=== PATIENT | male | born 1950 | race Caucasian/White ===

== ENCOUNTER 2018-07-02 21:51 | Emergency (ER) | payer MEDICARE ==
[~2018-07-02] VITALS: Ht 167.6 cm; Wt 55.3 kg
[~2018-07-02 21:51] MED LIST: AMLO10TA6 PO; ASPI-612 PO; ASPI325T8 PO; BUDE180A IH; CLOP75TA PO; FURO-68 PO; PROAIR HFA8.5 GM INH; TAMS0.4C97 PO; TICA90TA PO
[2018-07-02] MEDS ORDERED: IV NORMAL SALINE 1000ML BAG 1,000 ML IV ONE (23:00)
[2018-07-02 23:22] LABS: BASO # 0.1 x10^3/uL (0.0-0.2); BASO % 1 % (0-3); EOS # 0.4 x10^3/uL (0.0-0.7); EOS % 5 % (0-3); HEMATOCRIT 34.3 % (39.0-53.0); HEMOGLOBIN 12.2 g/dL (13.0-17.5); LYMPH # 1.5 x10^3/uL (1.0-4.8); LYMPH % 18 % (24-48); MEAN CORPUSCULAR HEMOGLOBIN 33 pg (25-35); MEAN CORPUSCULAR HGB CONC 36 g/dL (31-37); MEAN CORPUSCULAR VOLUME 94 fL (79-100); MONO # 0.5 x10^3/uL (0.0-1.1); MONO % 6 % (0-9); NEUT # 5.6 x10^3uL (1.8-7.7); NEUT % 70 % (31-73); PLATELET COUNT 327 x10^3/uL (140-400); RED BLOOD COUNT 3.66 x10^6/uL (4.30-5.70); RED CELL DISTRIBUTION WIDTH 13.8 % (11.5-14.5)
[2018-07-02 23:24] LABS: BILIRUBIN,URINE SMALL (NEG); CLARITY,URINE CLOUDY; COLOR,URINE RED; NITRITE,URINE NEGATIVE (NEG); PH,URINE 5.5; PROTEIN,URINE 30 mg/dL (NEG-TRACE)
[2018-07-02 23:29] LABS: RBC,URINE TNTC /HPF (0-2)
[2018-07-02 23:31] LABS: BACTERIA,URINE 0 /HPF (0-FEW); SQUAMOUS EPITHELIAL CELL,UR OCC /LPF; WBC,URINE 20-40 /HPF (0-4)
[2018-07-02 23:32] LABS: HYALINE CASTS, URINE FEW /HPF
[2018-07-03] MEDS ORDERED: LEVO500T59 PO (00:18)
[2018-07-03 00:45] VITALS: BP 142/70
--- NOTE | 2018-07-03 04:40 | PHYS DOC ---
Past Medical History Past Medical History: [place] Additional Past Surgical Histo: EAR, HERNIA REPAIR, STENT PLACEMENT Additional Information: 0.5 PPD Alcohol Use: None Drug Use: None Adult General Chief Complaint Chief Complaint: BLOOD IN URINE HPI HPI Patient is a 68 year old male who presents with hematuria. The patient states he had bright red blood from his penis earlier today. He was in the ER earlier this week for the same complaint. The patient was in the hospital last week when he had a Ramírez catheter placed. There was some difficulty placing the Ramírez and he describes a traumatic insertion. He had some hematuria prior to discharge that cleared. Following discharge, he had another episode of hematuria when he came to the emergency department. His hemoglobin was stable. He was found to have hematuria but no other acute findings. He was admitted during that ED visit and was again evaluated by urology. The plan of care included watchful waiting. The patient does have scheduled follow-up with urology. His urine again cleared and he was discharged from the hospital without intervention. Today, he presents with another episode. He describes bright red blood from his urethra soaking a couple of wash rags. He does not have pain. No fever. He has no difficulty with urination. Review of Systems Review of Systems Constitutional: Denies fever or chills HENT: Denies Respiratory: Denies Cardiovascular: No additional information not addressed in HPI GI: Denies abdominal pain : Denies dysuria Musculoskeletal: Denies back pain Integument: Denies rash or skin lesions Neurologic: Denies All other systems were reviewed and found to be within normal limits, except as documented in this note. Current Medications Current Medications Current Medications Medications (Trade) Dose Ordered Sig/Chanel Start Time Stop Time Status Last Admin Dose Admin Levofloxacin (Levaquin) 500 mg 1X ONCE 07/03/18 00:30 07/03/18 00:31 DC 07/03/18 00:44 500 MG Sodium Chloride 1,000 ml @ 1,000 mls/hr 1X ONCE 07/02/18 23:00 07/02/18 23:59 DC Allergies Allergies Allergies Coded Allergies Type Severity Reaction Last Updated Verified coconut Allergy Intermediate 06/26/18 Yes Physical Exam Physical Exam Constitutional: Well developed, well nourished, no acute distress HENT: Normocephalic, atraumatic, bilateral external ears normal, oropharynx moist Eyes: PERRLA, EOMI, conjunctiva normal Neck: Normal range of motion, no tenderness Cardiovascular:Heart rate regular rhythm, no murmur Lungs & Thorax: Bilateral breath sounds clear to auscultation Abdomen: Bowel sounds normal, soft, no tenderness Skin: Warm, dry, no erythema, no rash Extremities: No tenderness, no edema Neurologic: Alert and oriented X 3 Psychologic: Affect normal Current Patient Data Vital Signs Vital Signs Date Time Temp Pulse Resp B/P (MAP) Pulse Ox O2 Delivery O2 Flow Rate FiO2 07/03/18 00:45 61 16 142/70 (94) 97 07/02/18 22:45 Room Air 07/02/18 22:09 98.0 98.0 Lab Values Laboratory Tests Test 07/02/18 22:14 07/02/18 22:25 Urine Collection Type Unknown Urine Color Red Urine Clarity Cloudy Urine pH 5.5 Urine Specific [place] 1.015 Urine Protein 30 mg/dL (NEG-TRACE) Urine Glucose (UA) Negative mg/dL (NEG) Urine Ketones (Stick) Trace mg/dL (NEG) Urine Blood Large (NEG) Urine Nitrite Negative (NEG) Urine Bilirubin Small (NEG) Urine Urobilinogen Dipstick 1.0 mg/dL (0.2 mg/dL) Urine Leukocyte Esterase Moderate (NEG) Urine RBC Tntc /HPF (0-2) Urine WBC 20-40 /HPF (0-4) Urine Squamous Epithelial Cells Occ /LPF Urine Bacteria 0 /HPF (0-FEW) Urine Hyaline Casts Few /HPF Urine Mucus Mod /LPF White Blood Count 8.0 x10^3/uL (4.0-11.0) Red Blood Count 3.66 x10^6/uL (4.30-5.70) L Hemoglobin 12.2 g/dL (13.0-17.5) L Hematocrit 34.3 % (39.0-53.0) L Mean Corpuscular Volume 94 fL (79-100) Mean Corpuscular Hemoglobin 33 pg (25-35) Mean Corpuscular Hemoglobin Concent 36 g/dL (31-37) Red Cell Distribution Width 13.8 % (11.5-14.5) Platelet Count 327 x10^3/uL (140-400) Neutrophils (%) (Auto) 70 % (31-73) Lymphocytes (%) (Auto) 18 % (24-48) L Monocytes (%) (Auto) 6 % (0-9) Eosinophils (%) (Auto) 5 % (0-3) H Basophils (%) (Auto) 1 % (0-3) Neutrophils # (Auto) 5.6 x10^3uL (1.8-7.7) Lymphocytes # (Auto) 1.5 x10^3/uL (1.0-4.8) Monocytes # (Auto) 0.5 x10^3/uL (0.0-1.1) Eosinophils # (Auto) 0.4 x10^3/uL (0.0-0.7) Basophils # (Auto) 0.1 x10^3/uL (0.0-0.2) Laboratory Tests 07/02/18 22:25 EKG EKG [] Radiology/Procedures Radiology/Procedures [] Course & Med Decision Making Course & Med Decision Making Pertinent Labs and Imaging studies reviewed. (See chart for details) Patient was again evaluated for hematuria. During the ED course, the patient was encouraged to drink copious amounts of water. His urine eventually did become clear before he left the ER. Urinalysis again revealed hematuria but this time also concern for some infection. The patient is discharged to home with a prescription for Levaquin. He was advised that he did not need to return to the emergency department unless his bleeding persisted in the near future. His hemoglobin today was stable. He does have scheduled follow-up with urology. Dragon Disclaimer Dragon Disclaimer This electronic medical record was generated, in whole or in part, using a voice recognition dictation system. Departure Departure Impression: Primary Impression: Urinary tract infection Additional Impression: Gross hematuria Disposition: HOME, SELF-CARE Condition: GOOD Patient Instructions: Urinary Tract Infection, [id number], Hematuria, Adult Scripts Levofloxacin (LEVAQUIN) 500 Mg Tablet 500 MG PO DAILY for 5 Days, #5 TAB Prov: JENN GREGORY DO 07/03/18 Problem Qualifiers JENN GREGORY DO Jul 03, 2018 04:40
== END 2018-07-03 00:51 | disposition home or self-care (01) ==
LOC: ER 21:51
DX: N39.0 Urinary tract infection, site not specified (principal); R31.0 Gross hematuria; I25.2 Old myocardial infarction; Z91.018 Allergy to other foods
CPT/HCPCS: 36415; 81001; 85025; 99284

== ENCOUNTER → 2021-01-19 | Outpatient (CLI) | payer MEDICARE ==
[~2021-01-19] MED LIST changes: +ALBU2.5V8 INH; +AMLO-187 PO; -AMLO10TA6 PO; -ASPI-612 PO; +ASPI-886 PO; +LEVO500T59 PO; -PROAIR HFA8.5 GM INH
--- NOTE | 2021-01-19 12:32 | RAD ---
MR#: [id number] Date of Study: 01/19/2021 Ordering Physician: ASHOK COLLINS, Referring Physician: ASHOK COLLINS, Tech: Cyrus Dobbins MBA, RDMS, RVT, RDCS, RTR APPROVED REPORT Patient Location: OUT-PATIENT Indications rt groin swelling/r/o psuedoaneurysm Findings Grayscale and color images of the right groin were obtained. Grossly there is mild diffuse atheroscl erosis in the proximal right common femoral artery. The common femoral vein does not have any eviden ce of thrombus. No obvious arteriovenous communication or pseudoaneurysm is identified of the right groin vessels. Incidental note is made of right groin lymph node largest measuring 4.1 cm. Clinical correlation recommended. Critical Notification Critical Value: No <Conclusion> 1. No clear evidence of right groin pseudoaneurysm or arteriovenous fistula formation 2. Incidental note is made of right groin lymph nodes with the largest measuring 4.1 cm. Signed by : Matt Matthews, Electronically Approved : 01/19/2021 12:32:13
--- NOTE | 2021-01-19 16:50 | CARD ---
MR#: [id number] Date of Study: 01/19/2021 Ordering Physician: ASHOK COLLINS, Referring Physician: ASHOK COLLINS, Tech: Prabha Weinberg [facility] APPROVED REPORT EXAM: Two-dimensional and M-mode echocardiogram with Doppler and color Doppler. Other Information Quality : AverageHR: 52bpm Rhythm : NSR INDICATION Dyspnea Cardiac Disease: CAD RISK FACTORS Hypertension Hyperlipidemia Smoking 2D DIMENSIONS RVDd2.9 (2.9-3.5cm)Left Atrium(2D)4.1 (1.6-4.0cm) IVSd1.1 (0.7-1.1cm)Aortic Root(2D)3.3 (2.0-3.7cm) LVDd4.1 (3.9-5.9cm)LVOT Diameter2.3 (1.8-2.4cm) PWd1.1 (0.7-1.1cm)LVDs3.0 (2.5-4.0cm) FS (%) 27.3 %SV39.6 ml LVEF(%)53.6 (>50%) Aortic Valve AoV Peak Randolph.91.4cm/sAoV VTI25.7cm AO Peak GR.3.3mmHgLVOT Peak Randolph.75.9cm/s AO Mean GR.2mmHgAVA (VMAX)3.31cm2 Mitral Valve MV E Tmilojnj93.5cm/sMV DECEL [id number] MV A Lqybcove82.0cm/sE/A Ratio0.9 Pulmonary Vein S1 Ufdllzer67.6cm/sD2 Gxleeecc43.4cm/s PVa [id number] LEFT VENTRICLE The left ventricle is normal size. There is borderline concentric left ventricular hypertrophy. The l eft ventricular systolic function is normal and the ejection fraction is within normal range. Estimat ed ejection fraction 50-55%. There is normal LV segmental wall motion. Transmitral Doppler flow patte rn is Grade I-abnormal relaxation pattern. RIGHT VENTRICLE The right ventricle is normal size. There is normal right ventricular wall thickness. The right ventr icular systolic function is normal. ATRIA The left atrium size is normal. The right atrium size is normal. The interatrial septum is intact wit h no evidence for an atrial septal defect or patent foramen ovale as noted on 2-D or Doppler imaging. AORTIC VALVE The aortic valve is normal in structure and function. Doppler and Color Flow revealed no significant aortic regurgitation. There is no significant aortic valvular stenosis. MITRAL VALVE The mitral valve is normal in structure and function. There is no evidence of mitral valve prolapse. There is no mitral valve stenosis. Doppler and Color-flow revealed mild mitral regurgitation. TRICUSPID VALVE The tricuspid valve is normal in structure and function. Doppler and Color Flow revealed no tricuspid valve regurgitation noted. Unable to estimate PAP. There is no tricuspid valve stenosis. PULMONIC VALVE Doppler and Color Flow revealed no pulmonic valvular regurgitation. There is no pulmonic valvular horace nosis. GREAT VESSELS The aortic root is normal in size. The ascending aorta is normal in size. The IVC is normal in size a nd collapses >50% with inspiration. PERICARDIAL EFFUSION There is no evidence of significant pericardial effusion. Critical Notification Critical Value: No <Conclusion> The left ventricular systolic function is normal and the ejection fraction is within normal range. E stimated ejection fraction 50-55%. There is normal LV segmental wall motion. Signed by : Matt Matthews, Electronically Approved : 01/19/2021 16:49:53
== END ==
LOC: US 12:01
PROVIDERS: ATTEND Internal Medicine Cardiovascular Disease
DX: I34.0 Nonrheumatic mitral (valve) insufficiency (principal); R60.0 Localized edema; R59.9 Enlarged lymph nodes, unspecified
CPT/HCPCS: 93306; 93926

== ENCOUNTER → 2021-02-01 | Outpatient (CLI) | payer MEDICARE ==
[2021-02-01 11:19] LABS: BASO # 0.1 x10^3/uL (0.0-0.2); BASO % 1 % (0-3); EOS # 0.2 x10^3/uL (0.0-0.7); EOS % 3 % (0-3); HEMATOCRIT 44.9 % (39.0-53.0); HEMOGLOBIN 15.6 g/dL (13.0-17.5); LYMPH # 1.2 x10^3/uL (1.0-4.8); LYMPH % 22 % (24-48); MEAN CORPUSCULAR HEMOGLOBIN 33 pg (25-35); MEAN CORPUSCULAR HGB CONC 35 g/dL (31-37); MEAN CORPUSCULAR VOLUME 94 fL (79-100); MONO # 0.4 x10^3/uL (0.0-1.1); MONO % 6 % (0-9); NEUT % 68 % (31-73); PLATELET COUNT 169 x10^3/uL (140-400); RED BLOOD COUNT 4.77 x10^6/uL (4.30-5.70); RED CELL DISTRIBUTION WIDTH 13.2 % (11.5-14.5); WHITE BLOOD COUNT 5.8 x10^3/uL (4.0-11.0)
[2021-02-01 11:31] LABS: CALCIUM 8.3 mg/dL (8.5-10.1); CREATININE 1.1 mg/dL (0.7-1.3); GFR 66.6; POTASSIUM 4.9 mmol/L (3.5-5.1)
[2021-02-01 11:32] LABS: CHOLESTEROL/HDL RATIO 5.1
== END ==
LOC: LAB 10:49
PROVIDERS: ATTEND Internal Medicine Cardiovascular Disease
DX: I10 Essential (primary) hypertension (principal); E78.5 Hyperlipidemia, unspecified
CPT/HCPCS: 36415; 80048; 80061; 85025